=== PATIENT | female | born 1955 | race Caucasian/White ===

== ENCOUNTER 2024-12-18 10:20 | Outpatient (CLI) | payer MEDICARE, OTHER | END 2024-12-18 23:59 | disposition home or self-care (01) | LOC: MRI02 10:20 | PROVIDERS: ATTEND Family Medicine Sports Medicine | DX: T84.82XA Fibrosis due to internal orthopedic prosthetic devices, implants and grafts, initial encounter (principal); M19.012 Primary osteoarthritis, left shoulder; M75.52 Bursitis of left shoulder; M22.42 Chondromalacia patellae, left knee; R60.9 Edema, unspecified | CPT/HCPCS: 73221; 73721 ==